=== PATIENT | male | born 1955 | race Two or more races ===

== ENCOUNTER → 2024-02-21 | Outpatient (BNVA) | payer MEDICARE, SELFPAY | END | disposition home or self-care (01) | PROVIDERS: PCP Family Medicine; Referring Provider Family Medicine; Visit Provider Urology | DX: C61 Malignant neoplasm of prostate (principal); Z92.3 Personal history of irradiation | CPT/HCPCS: 81003; 99212; G0463 ==

== ENCOUNTER → 2024-03-25 | Outpatient (CLI) | payer MEDICARE, SELFPAY ==
[2024-03-25 17:53] LABS: Prostate Specific Antigen < 0.10 ng/mL (0-4.00)
== END | disposition home or self-care (01) ==
LOC: SCTO 16:25
PROVIDERS: PCP Family Medicine; Referring Provider Radiology Therapeutic Radiology; Visit Provider Radiology Therapeutic Radiology
DX: C61 Malignant neoplasm of prostate (principal)
CPT/HCPCS: 36415; 84153

== ENCOUNTER 2024-03-27 07:53 | Outpatient (RCR) | payer MEDICARE, SELFPAY ==
--- NOTE | 2024-03-26 08:50 | CTCFLWUP_ITS ---
[facility] [address] [place], [place] [address] FOLLOW-UP NOTE Date: 03/26/2024 MR#: [id number] Name: HEATHER ARGUETA : 1955 Dx: C61 Malignant neoplasm of prostate Identification. Patient was preop PSA of 68.2 status post robotic assisted radical mastectomy [facility] for prostate CA. Final path pT3bN1 with seminal vesicle involvement and tumor invading bilateral seminal vesicle and r ight vas deferens and tumor approximately 80% of the prostate. Postop prostate area treatment 6600 cGy completed 06/12/2017. Received 18 months of concomitant Lupron injection. CT scan bone scan February 26 showing no evidence of mets. PSA which remained low steadily mario to 0.37 on 08/31/2020. Declined med onc referral with secondary antiandrogen but agreed to have Lupron resumed. Most recent PSA 03/25/2024 less than 0.10. Patient taking calcium and vitamin D. Shall reevaluate i n 3 months with another labs including PSA. Electronically signed by: Chet Trammell M.D. 03/26/2024 8:47 AM
== END 2024-04-10 23:59 | disposition home or self-care (01) ==
LOC: SCTC 07:53
PROVIDERS: PCP Family Medicine; Referring Provider Family Medicine; Visit Provider Radiology Therapeutic Radiology
DX: Z51.11 Encounter for antineoplastic chemotherapy (principal); C61 Malignant neoplasm of prostate; Z92.3 Personal history of irradiation; Z79.818 Long term (current) use of other agents affecting estrogen receptors and estrogen levels
CPT/HCPCS: 96402; 99213; J9217; G0463

== ENCOUNTER → 2024-06-25 | Outpatient (CLI) | payer MEDICARE, SELFPAY ==
[2024-06-25 11:26] LABS: Basophils # (Auto) 0.1 Thou/mm3 (0.0-0.2); Basophils % (Auto) 1 % (0-2.5); Eosinophils # (Auto) 0.2 Thou/mm3 (0.0-0.5); Eosinophils % (Auto) 2 % (0-10); Hematocrit 42.2 % (41.0-53.0); Hemoglobin 14.2 g/dL (13.5-16.0); Immature Granulocytes % (Auto) 0 % (0-0); Immature Granulocytes Auto 0.02 Thou/mm3 (0.00-0.00); Lymphocytes # (Auto) 2.5 Thou/mm3 (1.0-4.8); Lymphocytes % (Auto) 26 % (10-50); Mean Corpuscular HGB Conc 33.6 g/dl (31.0-37.0); Mean Corpuscular Hemoglobin 31.3 pg (25.0-35.0); Mean Corpuscular Volume 93 fL (80-100); Monocytes # (Auto) 0.6 Thou/mm3 (0.0-0.8); Monocytes % (Auto) 6 % (0-12); Neutrophils # (Auto) 6.5 Thou/mm3 (1.8-7.7); Neutrophils % (Auto) 66 % (37-80); Nucleated Red Blood Cell % 0 /100 WBC (0); Platelet Count 339 Thou/mm3 (140-440); RDW Standard Deviation 45.5 fL (35.1-43.9); Red Blood Count 4.53 Miln/mm3 (4.50-5.90); White Blood Count 9.8 Thou/mm3 (3.8-10.6)
[2024-06-25 11:46] LABS: Alanine Aminotransferase 12 U/L (10-49); Albumin, Serum 4.4 gm/dL (3.4-4.8); Albumin/Globulin Ratio 1.7 (1.2-2.2); Alkaline Phosphatase 80 U/L (46-116); Anion Gap 7 (7-16); Aspartate Amino Transferase 15 U/L (0-34); BUN/Creatinine Ratio 15 Ratio (12-20); Bilirubin,Total 0.3 mg/dL (0.3-1.2); Blood Urea Nitrogen 15 mg/dL (9-23); Calcium 9.4 mg/dL (8.3-10.6); Calcium (Corrected) 9.4 mg/dL (8.5-10.1); Carbon Dioxide 27.7 mMol/L (20.0-31.0); Chloride 109 mMol/L (98-107); Globulin 2.6 gm/dL (2.3-3.5); Glucose 169 mg/dL (74-106); Osmolality,Calculated 291 (275-295); Potassium 4.3 mMol/L (3.4-5.1); Sodium 144 mMol/L (136-145); eGFR > 60 See Note
[2024-06-25 11:52] LABS: Prostate Specific Antigen < 0.10 ng/mL (0-4.00)
== END | disposition home or self-care (01) ==
LOC: SCTO 10:24
PROVIDERS: PCP Family Medicine; Referring Provider Radiology Therapeutic Radiology; Visit Provider Radiology Therapeutic Radiology
DX: C61 Malignant neoplasm of prostate (principal)
CPT/HCPCS: 36415; 80053; 84153; 85025

== ENCOUNTER 2024-06-26 07:42 | Outpatient (RCR) | payer MEDICARE, SELFPAY ==
--- NOTE | 2024-06-25 08:15 | CTCFLWUP_ITS ---
[facility] [address] [place], [place] [address] FOLLOW-UP NOTE Date: 06/25/2024 MR#: [id number] Name: HEATHER ARGUETA : 1955 Dx: C61 Malignant neoplasm of prostate Identification. Patient with PSA 68.2 underwent robotic assisted radical mastectomy [facility] 02/20/2017 for prostate CA. Final [id number] with seminal vesicle involvement and tumor invading bilateral seminal vesicle and right vas deferens and tumor approximately 80% of prostate. Postop radiation 6 600 cGy completed 06/12/2017. Received concomitant Lupron injection for 18-month duration. CT bone scan February 2019 showed no evidence of mets. PSA began to rise and was 0.37 on 08/31/2020. Patient declined med onc referral but did wish to continue with Lupron. Has been on intermittent Lupron since. Most recent PSA less than 0.1 with resumption of Lupron. Most recent less than 0.10 1 15 25. Doing well overall. Exercising even working at [facility] [employer]. Will schedule next Lupron shot and check his labs. Electronically signed by: Chet Trammell M.D. 06/25/2024 8:13 AM
== END 2024-07-08 23:59 | disposition home or self-care (01) ==
LOC: SCTC 07:42
PROVIDERS: PCP Family Medicine; Referring Provider Family Medicine; Visit Provider Radiology Therapeutic Radiology
DX: Z51.11 Encounter for antineoplastic chemotherapy (principal); C61 Malignant neoplasm of prostate; Z90.79 Acquired absence of other genital organ(s); Z92.3 Personal history of irradiation; Z79.818 Long term (current) use of other agents affecting estrogen receptors and estrogen levels
CPT/HCPCS: 96402; 99213; J9217; G0463

== ENCOUNTER → 2024-08-21 | Outpatient (CLI) | payer MEDICARE, SELFPAY ==
[2024-08-21 10:38] LABS: Prostate Specific Antigen < 0.10 ng/mL (0-4.00)
== END | disposition home or self-care (01) ==
LOC: COPL 09:50
PROVIDERS: PCP Family Medicine; Referring Provider Urology; Visit Provider Urology
DX: C61 Malignant neoplasm of prostate (principal)
CPT/HCPCS: 36415; 84153

== ENCOUNTER → 2024-08-24 | Outpatient (BNVA) | payer MEDICARE, SELFPAY | END | disposition home or self-care (01) | PROVIDERS: PCP Family Medicine; Referring Provider Family Medicine; Visit Provider Urology | DX: C61 Malignant neoplasm of prostate (principal); C77.9 Secondary and unspecified malignant neoplasm of lymph node, unspecified; Z92.3 Personal history of irradiation; F17.210 Nicotine dependence, cigarettes, uncomplicated | CPT/HCPCS: 81003; 99212; G0463 ==

== ENCOUNTER 2024-09-25 07:46 | Outpatient (RCR) | payer MEDICARE, SELFPAY ==
--- NOTE | 2024-09-24 08:57 | CTCFLWUP_ITS ---
[facility] [address] [place], [place] [address] FOLLOW-UP NOTE Date: 09/24/2024 MR#: [id number] Name: HEATHER ARGUETA : 1955 Dx: C61 Malignant neoplasm of prostate Identification patient with PSA 68.2 underwent robotic assisted radical prostatectomy [facility] 02/20/2017 for prostate CA. Final path pT3bN1 with seminal vesicle involvement and tumor invading bilateral seminal vesicle with right vas deferens and tumor approximately 80% of prostate. Postop XRT 6600 cGy completed 06/12/2017. Received concomitant Lupron injections for [address] bone scan February 2019 showed no evidence of mets. PSA began to rise and was 0.37 08/31/2020. Declined referral to medical oncologist but did agree to continue with Lupron. Has been on intermittent Lupron since. Most recent PSA less than 0.1 08 21 24. Patient is doing well staying active with daily running and working. States that he has adapted to the side effects of Lupron injections. Also taking calcium and vitamin D. Assessment #[id number] preop PSA 68.2 radical prostatectomy RCA 02/20/2017. #2. postop XRT 6600 cGy via VMAT completed 06/12/2017. Received concomitant Lupron injections for 18 months duration. #3. PSA rising to 0.38 08/11/2020 when patient agreed to resume Lupron. When Lupron was interrupted as per patient's request had risen again to 0.13 on 12/11/2022. #4. Currently feeling well remains active with daily running taking calcium and vitamin D. With most recent PSA less than 0.1 on 08/21/2024. #5. I have repeatedly told him about the danger of rising PSA in the future and recommended the addition of second-generation antiandrogen with referral to medical oncologist. Patient still declines. #6. I will see him again in 3 months following the next Lupron injections and with labs prior. Cc: Ej Coleman MD. Electronically signed by: Chet Trammell M.D. 09/24/2024 8:55 AM
== END 2024-10-08 23:59 | disposition home or self-care (01) ==
LOC: SCTC 07:46
PROVIDERS: PCP Family Medicine; Referring Provider Radiology Therapeutic Radiology; Visit Provider Radiology Therapeutic Radiology
DX: Z51.11 Encounter for antineoplastic chemotherapy (principal); C61 Malignant neoplasm of prostate; Z90.79 Acquired absence of other genital organ(s); Z92.3 Personal history of irradiation
CPT/HCPCS: 96402; 99213; J9217; G0463

== ENCOUNTER → 2025-02-22 | Outpatient (CLI) | payer MEDICARE, SELFPAY ==
[2025-02-22 13:05] LABS: Prostate Specific Antigen 0.12 ng/mL (0-4.00)
== END | disposition home or self-care (01) ==
LOC: COPL 09:41
PROVIDERS: PCP Family Medicine; Referring Provider Urology; Visit Provider Urology
DX: C61 Malignant neoplasm of prostate (principal)
CPT/HCPCS: 36415; 84153

== ENCOUNTER → 2025-02-26 | Outpatient (BNVA) | payer MEDICARE, SELFPAY | END | disposition home or self-care (01) | PROVIDERS: PCP Family Medicine; Referring Provider Family Medicine; Visit Provider Urology | DX: Z08 Encounter for follow-up examination after completed treatment for malignant neoplasm (principal); Z85.46 Personal history of malignant neoplasm of prostate; Z90.79 Acquired absence of other genital organ(s); F17.200 Nicotine dependence, unspecified, uncomplicated | CPT/HCPCS: 81003; 99212; G0463 ==